=== PATIENT | female | born 1975 | race Two or more races ===

== ENCOUNTER 2016-09-10 15:57 | Emergency (ER) | payer OTHER ==
--- NOTE | 2016-09-10 17:24 | ER Document Report ---
ED Medical Screen (RME) - General Chief Complaint: Vaginal Bleeding Stated Complaint: VAGINAL BLEEDING Time Seen by Provider: 09/10/16 17:21 Mode of Arrival: Ambulatory Information source: Patient - pt is with heavy vaginal bleeding starting 10 days ago -- dark blood with some clots today. Denies pain. TRAVEL OUTSIDE OF THE [place] IN LAST 30 DAYS: No - Related Data Allergies/Adverse Reactions: No Known Allergies Allergy (Verified 09/10/16 16:07) Past Medical History - Past Medical History Cardiac Medical History: Reports: Hx Hypercholesterolemia, Hx Hypertension Renal/ Medical History: Denies: Hx Peritoneal Dialysis - Immunizations Immunizations up to date: Yes Hx Diphtheria, Pertussis, Tetanus Vaccination: Yes Physical Exam - Vital signs Vitals: Temp Pulse Resp BP Pulse Ox 99.1 F 94 18 122/64 99 09/10/16 16:08 09/10/16 16:08 09/10/16 16:08 09/10/16 16:08 09/10/16 16:08 Course - Vital Signs Vital signs: Temp Pulse Resp BP Pulse Ox 99.1 F 94 18 122/64 99 09/10/16 16:08 09/10/16 16:08 09/10/16 16:08 09/10/16 16:08 09/10/16 16:08
[2016-09-10 18:00] LABS: ABSOLUTE BASOPHILS # (AUTO) 0.1 10^3/uL (0.0-0.2); ABSOLUTE EOSINOPHILS # (AUTO) 0.1 10^3/uL (0.0-0.6); ABSOLUTE LYMPHOCYTES (AUTO) 2.2 10^3/uL (0.5-4.7); ABSOLUTE MONOCYTES (AUTO) 0.4 10^3/uL (0.1-1.4); ABSOLUTE NEUT (AUTO) 7.1 10^3/uL (1.7-8.2); APPEARANCE,URINE CLEAR; BASOPHILS % (AUTO) 0.7 % (0-2); BILIRUBIN,URINE NEGATIVE (NEGATIVE); EOSINOPHILS % (AUTO) 0.9 % (0-6); GLUCOSE, URINE NEGATIVE (NEGATIVE); HEMATOCRIT 23.8 % (36.0-47.0); HGB HCT DIFFERENCE -0.7; KETONES,URINE NEGATIVE (NEGATIVE); LEUKOCYTE ESTERASE,URINE NEGATIVE (NEGATIVE); LYMPHOCYTES % (AUTO) 22.5 % (13-45); MEAN CORPUSCULAR HEMOGLOBIN 27.7 pg (27.0-33.4); MEAN CORPUSCULAR HGB CONC 32.4 g/dL (32.0-36.0); MEAN CORPUSCULAR VOLUME 86 fl (80-97); MONOCYTES % (AUTO) 3.9 % (3-13); NITRITE,URINE NEGATIVE (NEGATIVE); PROTEIN,URINE 30 mg/dL (NEGATIVE); RED BLOOD COUNT 2.78 10^6/uL (3.72-5.28); RED CELL DISTRIBUTION WIDTH 16.3 % (11.5-14.0); URINE SPECIFIC GRAVITY 1.003; UROBILINOGEN,URINE NEGATIVE mg/dL (<2.0); WHITE BLOOD COUNT 9.9 10^3/uL (4.0-10.5)
[2016-09-10 18:06] LABS: HEMOGLOBIN 7.7 g/dL (12.0-15.5)
[2016-09-10 18:11] LABS: ALANINE AMINOTRANSFERASE 19 U/L (9-52); ALBUMIN 3.6 g/dL (3.5-5.0); ALKALINE PHOSPHATASE 73 U/L (38-126); ANION GAP 9 (5-19); ASPARTATE AMINO TRANSFERASE 21 U/L (14-36); BILIRUBIN,DIRECT 0.2 mg/dL (0.0-0.4); BILIRUBIN,TOTAL 0.3 mg/dL (0.2-1.3); BLOOD UREA NITROGEN 10 mg/dL (7-20); CALCIUM 9.3 mg/dL (8.4-10.2); CARBON DIOXIDE 26 mmol/L (22-30); CHLORIDE 103 mmol/L (98-107); GLUCOSE 111 mg/dL (75-110); POTASSIUM 3.8 mmol/L (3.6-5.0); SODIUM 137.7 mmol/L (137-145); TOTAL PROTEIN 6.6 g/dL (6.3-8.2)
--- NOTE | 2016-09-10 18:34 | ER Document Report ---
ED General - General Chief Complaint: Vaginal Bleeding Stated Complaint: VAGINAL BLEEDING Time Seen by Provider: 09/10/16 17:21 Mode of Arrival: Ambulatory Notes: Patient is a 41-year-old female with past medical history of chronic anemia who presents with 12 days of vaginal bleeding. Patient does take progesterone for cycle control states normally her menstrual cycles last approximately 7-8 days. States that she is going through approximately 10 tampons daily currently. She has not seen her primary care doctor or [facility] regarding today's concerns. She denies any lightheadedness or syncope. No shortness of breath or chest pain. States she has a small amount of active bleeding at this time. Does note an associated dull, constant, cramping lower abdominal pain similar to when she has had menstrual cramps in the past. Nothing improves or worsens her symptoms. The history and physical exam was obtained by the provider using Ivorian. A formal hospital ribbon blocker was offered to the patient and any family at the bedside at the beginning of the encounter and was declined. TRAVEL OUTSIDE OF THE [place] IN LAST 30 DAYS: No - Related Data Allergies/Adverse Reactions: No Known Allergies Allergy (Verified 09/10/16 16:07) Past Medical History - General Information source: Patient - pt is with heavy vaginal bleeding starting 10 days ago -- dark blood with some clots today. Denies pain. - Social History Smoking Status: Never Smoker Chew tobacco use (# tins/day): No Frequency of alcohol use: None Drug Abuse: None Lives with: Family Family History: Reviewed & Not Pertinent Patient has suicidal ideation: No Patient has homicidal ideation: No - Past Medical History Cardiac Medical History: Reports: Hx Hypercholesterolemia, Hx Hypertension Renal/ Medical History: Denies: Hx Peritoneal Dialysis - Immunizations Immunizations up to date: Yes Hx Diphtheria, Pertussis, Tetanus Vaccination: Yes Review of Systems - Review of Systems Notes: Constitutional: Negative for fever. HENT: Negative for sore throat. Eyes: Negative for visual changes. Cardiovascular: Negative for chest pain. Respiratory: Negative for shortness of breath. Gastrointestinal: Positive for lower abdominal cramping Genitourinary: Negative for dysuria. Positive for vaginal bleeding Musculoskeletal: Negative for back pain. Skin: Negative for rash. Neurological: Negative for headaches, weakness or numbness. 10 point ROS negative except as marked above and in HPI. Physical Exam - Vital signs Vitals: Temp Pulse Resp BP Pulse Ox 99.1 F 94 18 122/64 99 09/10/16 16:08 09/10/16 16:08 09/10/16 16:08 09/10/16 16:08 09/10/16 16:08 Interpretation: Normal Notes: PHYSICAL EXAMINATION: GENERAL: Well-appearing, well-nourished and in no acute distress. HEAD: Atraumatic, normocephalic. EYES: Pupils equal round and reactive to light, extraocular movements intact, sclera anicteric, conjunctiva are normal. ENT: nares patent, oropharynx clear without exudates. Moist mucous membranes. NECK: Normal range of motion, supple without lymphadenopathy LUNGS: Breath sounds clear to auscultation bilaterally and equal. No wheezes rales or rhonchi. HEART: Regular rate and rhythm without murmurs ABDOMEN: Soft, nontender, normoactive bowel sounds. No guarding, no rebound. No masses appreciated. : Scant amount of dark blood with a small clot in the vaginal introitus. EXTREMITIES: Normal range of motion, no pitting or edema. No cyanosis. NEUROLOGICAL: No focal neurological deficits. Moves all extremities spontaneously and on command. PSYCH: Normal mood, normal affect. SKIN: Warm, Dry, normal turgor, no rashes or lesions noted. Course - Re-evaluation Re-evalutation: 09/10/16 18:29 Patient presents with 12 days of vaginal bleeding in the setting of chronic anemia. Her hemoglobin today is 7.7 and the last hemoglobin that patient has with her from a prior visit is from late 2015 at which point was 7.6. It appears that her hemoglobin today is not significantly different than her baseline. She has no hypotension or tachycardia. Otherwise well in appearance. No symptoms of orthostasis or clinically symptomatic anemia. On pelvic exam she does have a ongoing scant amount of vaginal bleeding but this is not a brisk bleed. Patient is ready on progesterone tablets for cycle regulation. I briefly discussed with Dr. Pimentel the [facility] on-call who agreed with the plan to proceed with estrogen-containing control with a loading 5 day cycle and outpatient follow-up in the women's clinic. At this time will discharge with return precautions and follow-up recommendations. Verbal discharge instructions given a the bedside and opportunity for questions given. Medication warnings reviewed. Patient is in agreement with this plan and has verbalized understanding of return precautions and the need for primary care follow-up in the next 24-72 hours. - Vital Signs Vital signs: Temp Pulse Resp BP Pulse Ox 98.7 F 88 18 107/65 100 09/10/16 18:42 09/10/16 18:42 09/10/16 18:42 09/10/16 18:42 09/10/16 18:42 - Laboratory Result Diagrams: 09/10/16 17:39 09/10/16 17:39 Laboratory results interpreted by me: 09/10/16 09/10/16 09/10/16 17:39 17:39 17:39 RBC 2.78 L Hgb 7.7 L Hct 23.8 L RDW 16.3 H Glucose 111 H Urine Protein 30 H Urine Blood LARGE H Discharge - Discharge Clinical Impression: Dysfunctional uterine bleeding Anemia Qualifiers: Anemia type: iron deficiency Iron deficiency anemia type: other iron deficiency Qualified Code(s): D50.8 - Other iron deficiency anemias Condition: Good Disposition: HOME, SELF-CARE Additional Instructions: You were seen today for dysfunctional uterine bleeding. This is when you have vaginal bleeding and abdominal cramping off of your normal menstrual cycle. You have been started on control pills to help regulate your cycle and control your symptoms. You need to follow-up with [facility] or your primary care physician the next 1-3 days. Return immediately if you worsening pain, you began bleeding through more than 2 pads per hour for more than 3 hours, you pass out, have persistent vomiting, develop a fever greater than 100.4F, or any other symptoms that are concerning to you. Take the control as follows Day 1: 5 tabs PO once Day 2: 4 tabs PO once Day 3: 3 tabs PO once Day 4: 2 tabs PO once Day 5 and all following days: 1 tab daily. DO NOT USE [place] PILLS Prescriptions: Norgestimate-Ethinyl Estradiol [Sprintec 28 Day Tablet] 1 tab PO ASDIR #2 packet
[2016-09-10 18:43] VITALS: BP 107/65
== END 2016-09-10 18:42 | disposition home or self-care (01) ==
LOC: ER 15:57
DX: N93.8 Other specified abnormal uterine and vaginal bleeding (principal); D50.9 Iron deficiency anemia, unspecified; I10 Essential (primary) hypertension; R10.30 Lower abdominal pain, unspecified; Z79.3 Long term (current) use of hormonal contraceptives
CPT/HCPCS: 36415; 80053; 81001; 81025; 85025; 99284

== ENCOUNTER 2016-09-21 18:03 | Emergency (ER) | payer OTHER ==
--- NOTE | 2016-09-21 18:27 | ER Document Report ---
ED Medical Screen (RME) - General Chief Complaint: Vaginal Bleeding Stated Complaint: VAGINAL BLEEDING Time Seen by Provider: 09/21/16 18:26 Notes: Patient presented approximately 1 week ago for heavy vaginal bleeding. At that time her hemoglobin was found to be 7.7. She was started on control pills and referred to her primary doctor. Patient is in unable to see a physician. She states that for several days the bleeding did stop. However she began bleeding heavily again today. She is still taking the pills. She is now lightheaded and dizzy. Patient states she has used 5 tampons today. She denies Any intercourse since being seen last time. TRAVEL OUTSIDE OF THE [place] IN LAST 30 DAYS: No - Related Data Allergies/Adverse Reactions: No Known Allergies Allergy (Verified 09/21/16 18:18) Past Medical History - Past Medical History Cardiac Medical History: Reports: Hx Hypercholesterolemia, Hx Hypertension Renal/ Medical History: Denies: Hx Peritoneal Dialysis - Immunizations Immunizations up to date: Yes Hx Diphtheria, Pertussis, Tetanus Vaccination: Yes Physical Exam - Vital signs Vitals: Temp Pulse Resp BP Pulse Ox 99.0 F 74 20 128/74 H 100 09/21/16 18:17 09/21/16 18:17 09/21/16 18:17 09/21/16 18:17 09/21/16 18:17 Course - Vital Signs Vital signs: Temp Pulse Resp BP Pulse Ox 99.0 F 74 20 128/74 H 100 09/21/16 18:17 09/21/16 18:17 09/21/16 18:17 09/21/16 18:17 09/21/16 18:17
[2016-09-21 18:58] LABS: ABSOLUTE BASOPHILS # (AUTO) 0.1 10^3/uL (0.0-0.2); ABSOLUTE EOSINOPHILS # (AUTO) 0.1 10^3/uL (0.0-0.6); ABSOLUTE LYMPHOCYTES (AUTO) 1.7 10^3/uL (0.5-4.7); ABSOLUTE MONOCYTES (AUTO) 0.4 10^3/uL (0.1-1.4); ABSOLUTE NEUT (AUTO) 5.4 10^3/uL (1.7-8.2); BASOPHILS % (AUTO) 0.8 % (0-2); EOSINOPHILS % (AUTO) 1.4 % (0-6); HEMATOCRIT 23.6 % (36.0-47.0); HGB HCT DIFFERENCE -0.5; LYMPHOCYTES % (AUTO) 21.9 % (13-45); MEAN CORPUSCULAR HEMOGLOBIN 28.7 pg (27.0-33.4); MEAN CORPUSCULAR HGB CONC 32.4 g/dL (32.0-36.0); MEAN CORPUSCULAR VOLUME 88 fl (80-97); MONOCYTES % (AUTO) 5.4 % (3-13); RED BLOOD COUNT 2.68 10^6/uL (3.72-5.28); RED CELL DISTRIBUTION WIDTH 19.3 % (11.5-14.0); SEGMENTED NEUTROPHILS % (AUTO) 70.5 % (42-78); WHITE BLOOD COUNT 7.7 10^3/uL (4.0-10.5)
[2016-09-21 19:01] LABS: HEMOGLOBIN 7.7 g/dL (12.0-15.5)
[2016-09-21 19:09] LABS: ANION GAP 10 (5-19); BLOOD UREA NITROGEN 14 mg/dL (7-20); CALCIUM 9.6 mg/dL (8.4-10.2); CARBON DIOXIDE 24 mmol/L (22-30); CHLORIDE 105 mmol/L (98-107); CREATININE RESULT 0.85 mg/dL (0.52-1.25); GLUCOSE 96 mg/dL (75-110); POTASSIUM 4.3 mmol/L (3.6-5.0); SODIUM 138.7 mmol/L (137-145)
--- NOTE | 2016-09-21 19:38 | ER Document Report ---
ED GI/ - General Chief Complaint: Vaginal Bleeding Stated Complaint: VAGINAL BLEEDING Time Seen by Provider: 09/21/16 18:26 Notes: Patient is a 41 year old female that comes to the ED for chief complaint of vaginal bleeding. Patient has a history of chronic anemia from heavy menses, she was evaluated 11 days ago at this department and placed on Sprintec, she was referred to [facility], she states she thought she could not go to [facility] because she had not stopped bleeding. Patient states that earlier today she felt lightheaded like she was going to pass out, she denies current symptoms of dizziness, she denies syncope. She denies chest pain, shortness of breath, she denies abdominal pain. She states she has gone through about 5 tampons today. She states that initially she did have a reduction in bleeding after she started the medications but she started again heavier today. She states she has had ultrasounds that showed no abnormality. TRAVEL OUTSIDE OF THE [place] IN LAST 30 DAYS: No - Related Data Allergies/Adverse Reactions: No Known Allergies Allergy (Verified 09/21/16 18:18) Home Medications: Current Home Medications Ferrous Sulfate 325 mg PO QID 09/21/16 [History] Past Medical History - General Information source: Patient - Social History Smoking Status: Never Smoker Frequency of alcohol use: None Drug Abuse: None Lives with: Family Family History: Reviewed & Not Pertinent - Past Medical History Cardiac Medical History: Reports: Hx Hypercholesterolemia, Hx Hypertension Renal/ Medical History: Denies: Hx Peritoneal Dialysis Surgical Hx: Negative - Immunizations Immunizations up to date: Yes Hx Diphtheria, Pertussis, Tetanus Vaccination: Yes Review of Systems - Review of Systems Constitutional: No symptoms reported EENT: No symptoms reported Cardiovascular: See HPI Respiratory: No symptoms reported Gastrointestinal: No symptoms reported Genitourinary: See HPI Female Genitourinary: No symptoms reported Musculoskeletal: No symptoms reported Skin: No symptoms reported Hematologic/Lymphatic: No symptoms reported Neurological/Psychological: No symptoms reported Physical Exam - Vital signs Vitals: Temp Pulse Resp BP Pulse Ox 99.0 F 74 20 128/74 H 100 09/21/16 18:17 09/21/16 18:17 09/21/16 18:17 09/21/16 18:17 09/21/16 18:17 Interpretation: Normal - General General appearance: Appears well, Alert In distress: None - HEENT Head: Normocephalic, Atraumatic Eyes: Normal Conjunctiva: Normal Extraocular movements intact: Yes Eyelashes: Normal Pupils: PERRL Mouth/Lips: Normal Mucous membranes: Normal Pharynx: Normal Neck: Normal - Respiratory Respiratory status: No respiratory distress Chest status: Nontender Breath sounds: Normal. No: Decreased air movement, Wheezing Chest palpation: Normal - Cardiovascular Rhythm: Regular. No: Tachycardia Heart sounds: Normal auscultation, S1 appreciated, S2 appreciated Murmur: No - Abdominal Inspection: Normal Distension: No distension Bowel sounds: Normal Tenderness: Nontender. No: Tender, Guarding Organomegaly: No organomegaly - Back Back: Normal, Nontender. No: Tender - Extremities General upper extremity: Normal inspection, Nontender, Normal color, Normal ROM , Normal temperature General lower extremity: Normal inspection, Nontender, Normal color, Normal ROM , Normal temperature, Normal weight bearing. No: Mariola's sign - Neurological Neuro grossly intact: Yes Cognition: Normal Orientation: AAOx4 Anders Coma Scale Eye Opening: Spontaneous Liberty Coma Scale Verbal: Oriented Anders Coma Scale Motor: Obeys Commands Anders Coma Scale Total: 15 Speech: Normal Motor strength normal: LUE, RUE, LLE, RLE Sensory: Normal - Psychological Associated symptoms: Normal affect, Normal mood - Skin Skin Temperature: Warm Skin Moisture: Dry Skin Color: Normal Course - Re-evaluation Re-evalutation: Hemoglobin again 7.7 just like it was 11 days ago. Patient is alert, well- appearing, vital signs unremarkable with no tachycardia or hypotension. 09/21/16 19:[address] Hai ECHAVARRIA. Does not recommend repeat high dose of Sprintec due to clotting risk but does recommend Provera instead (20 mg TID for 3 days, then 20 mg BID for 7 days). She also recommends Iron, TIBC, and ferretin levels and a followup tomorrow. I discussed this with patient, I advised her that she absolutely can go to [facility]/ [facility] whether or not she is bleeding although I also advised her she should return here if she develops any concerning symptoms such as passing out, dizziness, severe pain, fever. Patient states that she will call the number at 8:00 tomorrow as recommended and she will be seen tomorrow by [facility]. Patient states understanding and satisfaction with plan. Friend at bedside helped interpret, patient is mainly Pashto-speaking, patient requested and the park interpreter instead of park interpreter system. - Vital Signs Vital signs: Temp Pulse Resp BP Pulse Ox 98.7 F 80 16 125/78 100 09/21/16 20:50 09/21/16 20:50 09/21/16 20:50 09/21/16 20:50 09/21/16 20:50 - Laboratory Result Diagrams: 09/21/16 18:40 09/21/16 18:40 Laboratory results interpreted by me: 09/21/16 09/21/16 09/21/16 18:40 18:40 18:40 RBC 2.68 L Hgb 7.7 L Hct 23.6 L RDW 19.3 H Retic Count (auto) 8.15 H Absolute Retic 0.218 H Iron 24.8 L Discharge - Discharge Clinical Impression: Dysmenorrhea Anemia Qualifiers: Anemia type: unspecified type Qualified Code(s): D64.9 - Anemia, unspecified Condition: Stable Disposition: HOME, SELF-CARE Additional Instructions: Please take the new medication dose as prescribed. Call the clinic tomorrow morning at 8 AM to set up an appointment to be seen tomorrow. Return to emergency department for any concerning or worsening symptoms including severe pain, passing out, fever, or any other concerning symptoms. Prescriptions: Medroxyprogesterone Acet [Provera 10 Mg Tablet] 10 mg PO ASDIR #46 tablet Referrals: LON WHITE MD [ACTIVE STAFF] - Follow up tomorrow
[2016-09-21 20:50] VITALS: BP 125/78
== END 2016-09-21 20:50 | disposition home or self-care (01) ==
LOC: ER 18:03
DX: N94.6 Dysmenorrhea, unspecified (principal); N92.0 Excessive and frequent menstruation with regular cycle; D64.9 Anemia, unspecified; I10 Essential (primary) hypertension; R42 Dizziness and giddiness; Z79.3 Long term (current) use of hormonal contraceptives
CPT/HCPCS: 36415; 80048; 82728; 83540; 83550; 85025; 85045; 99284

== ENCOUNTER 2018-01-30 12:57 | Emergency (ER) | payer SELFPAY ==
[2018-01-30] MEDS ORDERED: ASPIRIN 81 MG TABLET, CHEWABLE PO ONE (13:56)
--- NOTE | 2018-01-30 13:56 | ER Document Report ---
ED Medical Screen (RME) - General Chief Complaint: High Blood Pressure Stated Complaint: BLOOD PRESSURE ISSUE Time Seen by Provider: 01/30/18 13:45 Mode of Arrival: Ambulatory Information source: Patient Notes: History obtained using a correspondence school teacher. 42-year-old female with hypertension, hyperlipidemia presents with multiple complaints including chest pain that started at 5 AM, headache, fatigue. I have greeted and performed a rapid initial assessment of this patient. A comprehensive ED assessment and evaluation of the patient, analysis of test results and completion of medical decision making process we will be contacted by additional ED providers. PHYSICAL EXAMINATION: Vital signs reviewed GENERAL: Well-appearing, well-nourished and in no acute distress. LUNGS: No respiratory distress Musculoskeletal: Normal range of motion NEUROLOGICAL: Normal speech, normal gait. PSYCH: Normal mood, normal affect. SKIN: Warm, Dry, normal turgor, no rashes or lesions noted. TRAVEL OUTSIDE OF THE [place] IN LAST 30 DAYS: No - HPI Onset: This morning Onset/Duration: Gradual, Constant Quality of pain: Pressure Associated Symptoms: Chest pain, Headache, Shortness of breath, Other - Fatigue Exacerbated by: Denies Relieved by: Denies Similar symptoms previously: No Recently seen / treated by doctor: No - Related Data Smoking: Non-smoker Frequency of alcohol use: None Drug Abuse: None Allergies/Adverse Reactions: No Known Allergies Allergy (Verified 01/30/18 13:09) Past Medical History - Past Medical History Cardiac Medical History: Reports: Hx Hypercholesterolemia, Hx Hypertension Neurological Medical History: Denies: Hx Seizures Renal/ Medical History: Denies: Hx Peritoneal Dialysis GI Medical History: Reports: Hx Crohn's Disease Past Surgical History: Reports: Hx Tubal Ligation. Denies: Hx Hysterectomy - Immunizations Immunizations up to date: Yes Hx Diphtheria, Pertussis, Tetanus Vaccination: No Physical Exam - Vital signs Vitals: Temp Pulse Resp BP Pulse Ox 99 F 85 20 128/85 H 100 01/30/18 13:26 01/30/18 13:26 01/30/18 13:26 01/30/18 13:26 01/30/18 13:26 Course - Vital Signs Vital signs: Temp Pulse Resp BP Pulse Ox 99 F 85 20 128/85 H 100 01/30/18 13:26 01/30/18 13:26 01/30/18 13:26 01/30/18 13:26 01/30/18 13:26 Doctor's Discharge - Discharge Referrals: CAMILLA WHITT MD [Primary Care Provider] - Follow up as needed
[2018-01-30 15:19] LABS: ABSOLUTE BASOPHILS # (AUTO) 0.1 10^3/uL (0.0-0.2); ABSOLUTE EOSINOPHILS # (AUTO) 0.2 10^3/uL (0.0-0.6); ABSOLUTE LYMPHOCYTES (AUTO) 2.1 10^3/uL (0.5-4.7); ABSOLUTE MONOCYTES (AUTO) 0.5 10^3/uL (0.1-1.4); ABSOLUTE NEUT (AUTO) 6.3 10^3/uL (1.7-8.2); BASOPHILS % (AUTO) 0.7 % (0-2); EOSINOPHILS % (AUTO) 1.7 % (0-6); HEMATOCRIT 38.6 % (36.0-47.0); HEMOGLOBIN 13.5 g/dL (12.0-15.5); LYMPHOCYTES % (AUTO) 22.8 % (13-45); MEAN CORPUSCULAR HEMOGLOBIN 30.9 pg (27.0-33.4); MEAN CORPUSCULAR HGB CONC 34.9 g/dL (32.0-36.0); MEAN CORPUSCULAR VOLUME 89 fl (80-97); MONOCYTES % (AUTO) 5.3 % (3-13); PLATELET COUNT 341 10^3/uL (150-450); RED BLOOD COUNT 4.36 10^6/uL (3.72-5.28); RED CELL DISTRIBUTION WIDTH 13.5 % (11.5-14.0); SEGMENTED NEUTROPHILS % (AUTO) 69.5 % (42-78); TOTAL CELLS COUNTED % (AUTO) 100 %; WHITE BLOOD COUNT 9.1 10^3/uL (4.0-10.5)
[2018-01-30 15:27] LABS: ALANINE AMINOTRANSFERASE 49 U/L (9-52); ALBUMIN 4.6 g/dL (3.5-5.0); ALKALINE PHOSPHATASE 105 U/L (38-126); ANION GAP 14 (5-19); ASPARTATE AMINO TRANSFERASE 47 U/L (14-36); BILIRUBIN,DIRECT 0.2 mg/dL (0.0-0.4); BILIRUBIN,TOTAL 0.4 mg/dL (0.2-1.3); BLOOD UREA NITROGEN 12 mg/dL (7-20); CARBON DIOXIDE 26 mmol/L (22-30); CHLORIDE 101 mmol/L (98-107); CREATINE KINASE 60 U/L (30-135); GLUCOSE 97 mg/dL (75-110); POTASSIUM 4.1 mmol/L (3.6-5.0); SODIUM 141.2 mmol/L (137-145)
--- NOTE | 2018-01-30 15:27 | RADIOLOGY REPORT (SQ) ---
EXAM DESCRIPTION: CHEST SINGLE VIEW COMPLETED DATE/TIME: 01/30/2018 3:16 pm REASON FOR STUDY: Chest pain COMPARISON: 11/06/2008 EXAM PARAMETERS: NUMBER OF VIEWS: One view. TECHNIQUE: Single frontal radiographic view of the chest acquired. RADIATION DOSE: NA LIMITATIONS: None. FINDINGS: LUNGS AND PLEURA: No opacities, masses or pneumothorax. No pleural effusion. MEDIASTINUM AND HILAR STRUCTURES: No masses. Contour normal. HEART AND VASCULAR STRUCTURES: Heart normal in size. Normal vasculature. BONES: No acute findings. HARDWARE: None in the chest. OTHER: No other significant finding. IMPRESSION: 1. No significant interval changes since the prior examination dated 11/06/2008. TECHNICAL DOCUMENTATION: JOB ID: [id number] [employer]- All Rights Reserved Reading location - IP/workstation name: [email or web address]
[2018-01-30 15:40] LABS: CREATINE KINASE MB 0.31 ng/mL (<4.55); TROPONIN I < 0.012 ng/mL
--- NOTE | 2018-01-30 18:57 | ER Document Report ---
ED Blood Pressure Problem - General Chief Complaint: Chest Pain Stated Complaint: BLOOD PRESSURE ISSUE Time Seen by Provider: 01/30/18 18:56 Mode of Arrival: Ambulatory Information source: Patient - Obtained using spanish medical interpreter Notes: Patient is a 42-year-old female with a history of hypertension who presents with isolated episodes of chest pain beginning this morning. Patient describes pain as a dull aching sensation, denies pressure or shortness, no associated shortness of breath or weakness. Patient also reports feeling as though her blood pressure has been elevated causing her to have headaches. Currently she has a mild headache and reports chest pain has nearly resolved. She denies recent illnesses, no fevers or chills, no new medications or medication changes. She denies having history of chest pain in the past and has never had a stress test. TRAVEL OUTSIDE OF THE [place] IN LAST 30 DAYS: No - HPI Patient complains to provider of: High blood pressure, Other - Headache, chest pain Onset: This morning Onset/Duration: Gradual Quality of pain: Achy. denies: Sharp, Stabbing Severity: Mild Pain Level: 1 Problem is: New problem Pt currently taking medication for problem: No Associated symptoms: Headache. denies: Blurred vision, Lightheaded, Nausea, Visual changes Similar symptoms previously: No Recently seen / treated by doctor: No - Related Data Allergies/Adverse Reactions: No Known Allergies Allergy (Verified 01/30/18 13:09) Past Medical History - General Information source: Patient - Social History Smoking Status: Never Smoker Cigarette use (# per day): No Chew tobacco use (# tins/day): No Smoking Education Provided: No Frequency of alcohol use: None Drug Abuse: None Lives with: Family Family History: Reviewed & Not Pertinent Patient has suicidal ideation: No Patient has homicidal ideation: No - Medical History Medical History: Other - Hypertension - Past Medical History Cardiac Medical History: Reports: Hx Hypercholesterolemia, Hx Hypertension Pulmonary Medical History: Reports: None EENT Medical History: Reports: None Neurological Medical History: Reports: None. Denies: Hx Seizures Endocrine Medical History: Reports: None Renal/ Medical History: Reports: None. Denies: Hx Peritoneal Dialysis Malignancy Medical History: Reports: None GI Medical History: Reports: Hx Crohn's Disease Musculoskeletal Medical History: Reports None Skin Medical History: Reports None Psychiatric Medical History: Reports: None Traumatic Medical History: Reports: None Infectious Medical History: Reports: None Past Surgical History: Reports: Hx Tubal Ligation. Denies: Hx Hysterectomy - Immunizations Immunizations up to date: Yes Hx Diphtheria, Pertussis, Tetanus Vaccination: No Review of Systems - Review of Systems -: Yes ROS unobtainable due to patient's medical condition Constitutional: No symptoms reported EENT: No symptoms reported Cardiovascular: Chest pain. denies: Palpitations, Dyspnea, Dizziness, Lightheaded, Edema Respiratory: No symptoms reported Gastrointestinal: No symptoms reported Genitourinary: No symptoms reported Female Genitourinary: No symptoms reported Musculoskeletal: No symptoms reported Skin: No symptoms reported Hematologic/Lymphatic: No symptoms reported Neurological/Psychological: Headaches. denies: Confusion, Weakness -: Yes All other systems reviewed and negative Physical Exam - Vital signs Vitals: Temp Pulse Resp BP Pulse Ox 99 F 85 20 128/85 H 100 01/30/18 13:26 01/30/18 13:26 01/30/18 13:26 01/30/18 13:26 01/30/18 13:26 Interpretation: Normal - General General appearance: Appears well, Alert In distress: None - HEENT Head: Normocephalic, Atraumatic Eyes: Normal Pupils: PERRL - Respiratory Respiratory status: No respiratory distress Chest status: Nontender Breath sounds: Normal Chest palpation: Normal - Cardiovascular Rhythm: Regular Heart sounds: Normal auscultation Murmur: No Pulses: Normal: Radial, Carotid, Femoral - Abdominal Inspection: Normal Distension: No distension Bowel sounds: Normal Tenderness: Nontender Organomegaly: No organomegaly - Rectal Tenderness: No - Deferred - Genitourinary Notes: Deferred - Back Back: Normal, Nontender - Extremities General upper extremity: Normal inspection, Nontender, Normal color, Normal ROM , Normal temperature General lower extremity: Normal inspection, Nontender, Normal color, Normal ROM , Normal temperature, Normal weight bearing. No: Mariola's sign - Neurological Neuro grossly intact: Yes Cognition: Normal Orientation: AAOx4 Anders Coma Scale Eye Opening: Spontaneous [place] Coma Scale Verbal: Oriented [place] Coma Scale Motor: Obeys Commands [place] Coma Scale Total: 15 Speech: Normal Motor strength normal: LUE, RUE, LLE, RLE Sensory: Normal - Psychological Associated symptoms: Normal affect, Normal mood - Skin Skin Temperature: Warm Skin Moisture: Dry Skin Color: Normal Course - Re-evaluation Re-evalutation: 01/30/18 20:33 Patient already has two negative troponins and a normal chest x-ray. She was instructed to follow-up with her primary physician to have a stress test and voices understanding this. She will be discharged and both understands and agrees with the plan in the presence of an spanish medical interpreter. - Vital Signs Vital signs: Temp Pulse Resp BP Pulse Ox 99 F 85 13 107/70 100 01/30/18 13:26 01/30/18 13:26 01/30/18 19:01 01/30/18 19:01 01/30/18 19:01 - Laboratory Result Diagrams: 01/30/18 14:56 01/30/18 14:56 Laboratory results interpreted by me: 01/30/18 14:56 Calcium 11.0 H AST 47 H - Diagnostic Test Radiology reviewed: Reports reviewed - EKG Interpretation by Me EKG shows normal: Sinus rhythm Rate: Normal Rhythm: NSR [place]/QRS: No: LBBB P Waves: No: MONIKA, LAE, Absent, AV Dissociation, Other Heart block present: No: 1st Degree, Mobitz 1, Mobitz 2, CHB (3rd degree block) When compared to previous EKG there are: Previous EKG unavailable Discharge - Discharge Clinical Impression: Chest pain Condition: Good Instructions: Chest Pain of Unclear Cause ([facility]), Cardiac Stress Test Information ([facility]) Additional Instructions: Please follow-up with your primary physician to discuss having a stress test. Return to the emergency department immediately if you experience worsening or different chest pain, shortness of breath, or any other concerning symptom. Referrals: CAMILLA WHITT MD [ACTIVE STAFF] - Follow up as needed Print Language: Czech
[2018-01-30] MEDS ORDERED: ASPIRIN 325 MG TABLET PO ONE (19:44)
--- NOTE | 2018-01-30 20:10 | EKG REPORT ---
SEVERITY:- NORMAL ECG - SINUS RHYTHM : Confirmed by: Yamileth Winters 30-Jan-2018 20:09:18
[2018-01-30 22:36] VITALS: BP 105/68
== END 2018-01-30 22:40 | disposition home or self-care (01) ==
LOC: ER 12:57
DX: R07.9 Chest pain, unspecified (principal); I10 Essential (primary) hypertension; R51 Headache
CPT/HCPCS: 36415; 71045; 80053; 82550; 82553; 84484; 85025; 93005; 93010; 99285